=== PATIENT | male | born 1995 | race Caucasian/White ===

== ENCOUNTER 2017-09-01 17:48 | Emergency (ER) | payer MEDICAID, OTHER ==
[~2017-09-01 17:48] MED LIST: AMAN50SY PO; ATEN-100 PO; CLAR10TA7 PO; DIAZ5 PO; FLON0.053; IBUP400T20 PO; LEVE500S PO; OXYC5 PO; baclofen pump
[2017-09-01 17:51] VITALS: BP 145/81; PULSE 91; RESP 16; TEMP 98.2; O2SAT 100
[2017-09-01 18:23] VITALS: BP 145/81; PULSE 81; RESP 16; TEMP 98.2; O2SAT 100
[2017-09-01] MEDS ORDERED: CLINDAMYCIN PHOS 600 MG/4 ML VIAL IM ONE (18:30)
[2017-09-01] MEDS ORDERED: CLIN75SO PO (18:40)
--- NOTE | 2017-09-01 18:41 | PD ---
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 Patient has contractures and in the right antecubital fossa he has had a chronic wound is developed with some pitting. This is been a little bit worse recently and then over the past days developed more pain redness and swelling to the arm and the brachium itself. No known fevers. Some kidney stones in the past as well. Follows with Dr. Ochoa, and mom was trying to get follow-up with wound care but was narrowing of dental next week. Is concerned has had infections in the arm before. History Past Medical History Narrative Medical Anoxic brain injury after V. fib arrest at the age of 17 with hypoxic encephalopathy, seizures, Social History Alcohol Use: No Tobacco Use: No Allergies-Medications (Allergen,Severity, Reaction): Coded Allergies: No Known Allergies (Verified Adverse Reaction, Unknown, 09/01/17) Reported Meds & Prescriptions Reported Meds & Active Scripts Active Reported [baclofen pump] 1,547.5 Mcg .ROUTE DIRECTED Review of Systems Except as stated in HPI: all other systems reviewed are Neg Physical Exam Narrative GENERAL: 22-year-old man, nonverbal, contracted with contracture deformities in upper and lower extremities SKIN: Focused skin assessment warm/dry. HEAD: Atraumatic. Normocephalic. EYES: Pupils equal and round. No scleral icterus. No injection or drainage. ENT: No nasal bleeding or discharge. Mucous membranes pink and moist. NECK: Trachea midline. No JVD. CARDIOVASCULAR: Regular rate and rhythm. No murmur appreciated. RESPIRATORY: No accessory muscle use. Clear to auscultation. Breath sounds equal bilaterally. GASTROINTESTINAL: Abdomen soft, non-tender, nondistended. Hepatic and splenic margins not palpable. MUSCULOSKELETAL: Significant spasticity throughout. No obvious deformities. In the right antecubital fossa there is some scarring as well as a pitting wound with a little bit of drainage. There is some fullness of the right brachium the mom describes as abnormal. Do not see any obvious erythema or redness. There is a little bit of warmth. NEUROLOGICAL: Nonverbal and unresponsive to most stimuli. Spasticity throughout. No obvious asymmetry. Data Data Last Documented VS Vital Signs Date Time Temp Pulse Resp B/P (MAP) Pulse Ox O2 Delivery O2 Flow Rate FiO2 09/01/17 18:23 98.2 81 16 145/81 (102) 100 Room Air Orders Orders Clindamycin Inj (Cleocin Inj) (09/01/17 18:30) MDM Medical Decision Making Medical Screen Exam Complete: Yes Emergency Medical Condition: Yes Differential Diagnosis Cellulitis, skin wounds, pitting abscess, other Narrative Course Medical decision making 22-year-old male, concern for soft tissue infection of the right arm, exam in the arm, I probed it it does not appear to probe deep so far as I can tell. There is erythema warmth more proximally. Do not see any obvious erythema. Is no obvious fluctuance. 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 Will give a shot of clindamycin, and continue clindamycin through the feeding tube. Diagnosis Primary Impression: Cellulitis of right elbow Additional Instructions: Take clindamycin as prescribed. Follow-up with wound care next week as scheduled. Return to the emergency department for any worsening redness pain swelling fevers or any other new or worsening symptoms. Med/Other Pt SpecificInfo: Prescription(s) given Scripts Clindamycin Liq (Clindamycin Liq) 75 Mg/5 Ml Soln 300 MG PO Q6H for Infection for 10 Days, #800 ML 0 Refills Prov: Fredy Benitez MD 09/01/17 Disposition: 01 DISCHARGE HOME Condition: Stable Fredy Benitez MD Sep 01, 2017 18:41
== END 2017-09-01 19:00 | disposition home or self-care (01) ==
LOC: NEPD 17:48
DX: L03.113 Cellulitis of right upper limb (principal)
CPT/HCPCS: 99283